=== PATIENT | female | born 1965 | race Caucasian/White ===

== ENCOUNTER 2017-12-19 13:43 | Outpatient (CLI) | payer MEDICARE, MEDICAID ==
--- NOTE | 2017-12-19 15:46 | RAD ---
RIGHT ANKLE 3 VIWES: HISTORY: Ankle pain. FINDINGS: Mild soft tissue swelling. Mild degenerative change is present with spurring from the medial malleol us. No fracture. Small enthesophytes from the posterior calcaneus. IMPRESSION: There are degenerative changes as described. No fracture or acute abnormality. POS: [facility]
== END 2017-12-19 13:44 | disposition home or self-care (01) ==
LOC: BICRAD 13:43
PROVIDERS: ATTEND Family Medicine
DX: M25.571 Pain in right ankle and joints of right foot (principal); M19.071 Primary osteoarthritis, right ankle and foot
CPT/HCPCS: 36415; 83036; 84550; 85025; 86140

== ENCOUNTER 2018-04-11 08:33 | Outpatient (CLI) | payer MEDICARE, MEDICAID ==
--- NOTE | 2018-04-11 09:27 | RAD ---
LEFT SHOULDER THREE VIEWS: History: Left shoulder pain. Injury to left shoulder. FINDINGS: No evidence of fracture or dislocation. AC joint is normally aligned. No significant degenerative tommie nge. IMPRESSION: Unremarkable left shoulder. POS: [facility]
== END 2018-04-11 08:34 | disposition home or self-care (01) ==
LOC: BICRAD 08:33
PROVIDERS: ATTEND Family Medicine
DX: M25.512 Pain in left shoulder (principal)
CPT/HCPCS: 36415; 80053; 82043; 83036

== ENCOUNTER 2018-06-23 11:20 | Outpatient (CLI) | payer MEDICARE, OTHER ==
--- NOTE | 2018-06-23 12:05 | RAD ---
2 views of the chest: 06/23/2018 COMPARISON: None HISTORY: Back pain, dyspnea, evaluate for pneumonia FINDINGS: Mild increased linear interstitial density noted bilaterally with no pneumothorax, pleural fluid, focal consolidation, or alveolar edema. Osseous structures demonstrate no acute findings. IMPRESSION: No focal consolidation or alveolar edema.
== END 2018-06-23 11:21 | disposition home or self-care (01) ==
LOC: BICRAD 11:20
PROVIDERS: ATTEND Family Medicine
DX: M54.9 Dorsalgia, unspecified (principal)
CPT/HCPCS: 71046

== ENCOUNTER 2018-10-02 10:47 | Outpatient (CLI) | payer MEDICARE, OTHER ==
--- NOTE | 2018-10-02 11:56 | RAD ---
Left toes 3 views HISTORY: Left toe injury. FINDINGS: The lateral view best demonstrates a nondisplaced oblique fracture through the base of the proximal phalanx little toe. No evidence of intra-articular extension. IMPRESSION: Left Little toe fracture.
== END 2018-10-02 10:48 | disposition home or self-care (01) ==
LOC: BICRAD 10:47
PROVIDERS: ATTEND Family Medicine
DX: M79.675 Pain in left toe(s) (principal); S92.515A Nondisplaced fracture of proximal phalanx of left lesser toe(s), initial encounter for closed fracture
CPT/HCPCS: 36415; 80061; 83036

== ENCOUNTER 2018-12-22 08:58 | Outpatient (CLI) | payer MEDICARE, MEDICAID ==
[2018-12-22 10:15] LABS: #Basophils 0.2 thou/uL (0.0-0.2); #Eosinphils 0.4 thou/uL (0.0-0.7); #Lymphocytes 2.8 thou/uL (1.20-3.40); #Monocytes 0.7 thou/uL (0.11-0.59); #Neutrophils 7.8 thou/uL (1.40-6.50); %Basophils 1.3 % (0.0-1.0); %Eosinophils 3.7 % (0.0-10.0); %Lymphocytes 23.6 % (21.0-51.0); %Monocytes 5.9 % (0.0-10.0); %Neutrophils 65.6 % (42.0-75.0); Hemoglobin 15.2 g/dL (12.0-16.0); Mean Corpuscular HGB CONC 33.5 g/dL (32.0-36.0); Mean Corpuscular Volume 95.5 fL (78.0-98.0); Mean Platelet Volume 8.7 fL (7.4-10.4); Platelet Count 300 thou/uL (130-400); RBC Distribution Width 12.2 % (11.5-14.5); Red Blood Cell (RBC) Count 4.75 mill/uL (4.20-5.40); White Blood Cell (WBC) Count 11.9 thou/uL (4.8-10.8)
[2018-12-22 10:32] LABS: Anion Gap 13 mmol/L (10-20); BUN (Urea Nitrogen) 15 mg/dL (9.8-20.1); Calc. Creatinine Clearance 0 mL/min (70-130); Calcium 9.2 mg/dL (7.8-10.44); Carbon Dioxide 28 mmol/L (22-29); Chloride 101 mmol/L (98-107); Estimated GFR-MDRD 80; Glucose 185 mg/dL (70-105); Potassium 4.7 mmol/L (3.5-5.1); Sodium 137 mmol/L (136-145)
--- NOTE | 2018-12-26 10:29 | EKG ---
Test Reason : Blood Pressure : / mmHG Vent. Rate : 092 BPM Atrial Rate : 092 BPM P-R Int : 120 ms QRS Dur : 086 ms QT Int : 374 ms P-R-T Axes : 071 069 060 degrees QTc Int : 462 ms Normal sinus rhythm Normal ECG No previous ECGs available Confirmed by FINN CRUZ, LILLIAN ([id number]) on 12/26/2018 10:28:58 AM Referred By: TALAT Confirmed By:LILLIAN BRISENO MD
== END 2018-12-22 08:59 | disposition home or self-care (01) ==
LOC: LABBT 08:58
PROVIDERS: ATTEND Specialist
DX: Z01.818 Encounter for other preprocedural examination (principal); L73.2 Hidradenitis suppurativa; Z72.0 Tobacco use; E11.69 Type 2 diabetes mellitus with other specified complication; Z79.4 Long term (current) use of insulin
CPT/HCPCS: 80048; 85025; 93005; 93010

== ENCOUNTER 2018-12-25 07:15 | Day surgery (SDC) | payer MEDICARE, MEDICAID ==
[2018-12-22 09:20] VITALS: BMI 37.6
--- NOTE | 2018-12-25 07:14 | HP ---
HISTORY OF PRESENT ILLNESS: Latonia Pinon is a 53-year-old female, 5 feet 3 inches, 206 pounds, has dealt with hidradenitis suppurativa most of her life. She has had drainage and excision of lesions in both axilla [place] the [place] She had excision of her right axilla lesions and prior to that more than 10-15 years ago, left axilla. She deals chronically with problems with her left axilla worse than the right. She has had previous disease below her breast and to a lesser degree in her groin creases, although these are not currently problems. She desires excision of her left axillary hidradenitis that she has recurrent problems. Plan is to do that under general anesthesia as an outpatient. ALLERGIES: LEVAQUIN CAUSES SOME RESPIRATORY DIFFICULTY. SOCIAL HISTORY: Tobacco 1 pack per day. ALCOHOL: Socially rarely. MEDICATIONS: Metformin 500 mg 2 tabs twice a day, insulin at bedtime, atorvastatin daily, Prozac daily, albuterol as needed only p.r.n., gabapentin 100 mg 3 times a day, naproxen 500 mg q.12 hours, lisinopril daily, Tylenol No. 3 q.6 hours as needed, cyclobenzaprine as needed 3 times a day 5 mg, aspirin 81 mg a day, Tresiba insulin pen subcutaneous tissue at bedtime 62 units, Invokana 300 mg once a day, . PAST SURGICAL HISTORY: Excision of bilateral axilla hidradenitis disease, only dealing with active disease, not an extensive resection in the past. SOCIAL HISTORY: The patient is disabled. She is . She has 3 children. PAST MEDICAL HISTORY: Type 2 diabetes mellitus insulin dependent, metabolic syndrome, morbid obesity, COPD, hyperlipidemia, hypertension, tobacco abuse, chronic bronchitis, and depression. REVIEW OF SYSTEMS: Noncontributory from a cardiac standpoint. She had a cardiac stress test 7 years ago that was normal performed out of state. No cardiac symptoms at all. Never has had a colonoscopy. PHYSICAL EXAMINATION: VITAL SIGNS: Weight 206 pounds, height 5 feet 3 inches, blood pressure 121/66, pulse 103, 97.3 degrees. HEAD, EARS, EYES, NOSE AND THROAT: Unremarkable. LUNGS: Clear to auscultation. No wheezing. No prolonged expiration. ABDOMEN: Soft, obese, nontender. EXTREMITIES: No ankle edema. She has inframammary mild hidradenitis disease, but no redness, no drainage, has some small scant pits. Both axilla reveals scarring in the apex without evidence of extensive resection. She has hair in both axilla extending inferiorly over the chest wall. She has pits and sinuses in the left axilla, worse in the right. ASSESSMENT/PLAN: 1. Hidradenitis suppurativa, worse in her left axilla, where she desires excision. Risks of infection, bleeding, reoperation, wound problems, etcetera were explained. She consents. 2. Chronic obstructive pulmonary disease. 3. Diabetes mellitus. 4. Metabolic syndrome. 5. Tobacco abuse. 6. Insulin-dependent diabetes mellitus. 7. Depression. Job ID: [id number]
[2018-12-25] MEDS ORDERED: Meropenem 2 GM in Sodium Chloride 0.9% 100 ML IVPB SCH (08:00)
[2018-12-25] MEDS ORDERED: Midazolam HCl 2 mg/2 ml Vial ONE (08:21)
[2018-12-25] MEDS ORDERED: Bacitracin Zinc Ointment 30 gm TUBE ONE (08:43)
[2018-12-25] MEDS ORDERED: Lidocaine 2% PF 5 ML VIAL ONE (08:43)
[2018-12-25] MEDS ORDERED: Bupivacaine HCl 0.5%/Epinephrine 1:200,000/PF 30 ml Vial ONE (08:43)
[2018-12-25] MEDS ORDERED: Fentanyl 100 MCG/2 ML VIAL ONE (08:47)
[2018-12-25] MEDS ORDERED: Famotidine/PF 20 mg/2ml Vial ONE (08:47)
[2018-12-25] MEDS ORDERED: HYDROcodone/Acetaminophen 5/325 mg Tablet ONE (12:04)
--- NOTE | 2018-12-25 14:26 | OP ---
DATE OF PROCEDURE: 12/25/2018 PREOPERATIVE DIAGNOSES: Hidradenitis suppurativa, tobacco abuse, diabetes, and morbid obesity. POSTOPERATIVE DIAGNOSES: Hidradenitis suppurativa, tobacco abuse, diabetes, and morbid obesity. PROCEDURE PERFORMED: Excision of left axillary hidradenitis suppurativa. ANESTHESIA: General, local 0.5% Marcaine with epinephrine 30 mL mixed with 2% Xylocaine 10 mL, total volume mixture used. #19 gold VANESSA drain left. DESCRIPTION OF PROCEDURE: The patient was taken to the operating room, where under general anesthesia in supine position, left axilla and chest wall were prepared with ChloraPrep and draped in routine fashion. Local anesthetic was infiltrated in the skin and subcutaneous tissue about the operative site, total volume mixture used. An elliptical incision was made for excision of the hair-bearing area and carried the incision down circumferentially for elliptical incision excising the left axillary skin hair-bearing area and subcutaneous tissue. Hemostasis was gained with the cautery. Flaps were created medially and laterally. Good hemostasis was achieved with a cautery. #19 gold VANESSA drain was placed through a separate inferior stab incision, secured with 3-0 nylon suture. OpSite and Mastisol were applied. . Subcutaneous tissue was approximated with 3-0 Monocryl and 2-0 Monocryl suture. Skin was approximated with continuous suture of 4-0 Monocryl and [place] glue applied. Sterile dressing applied. Job ID: [id number]
== END 2018-12-25 13:15 | disposition home or self-care (01) ==
LOC: SDC 07:15
PROVIDERS: ATTEND Specialist
PROC: 0JBF0ZZ Excision of Left Upper Arm Subcutaneous Tissue and Fascia, Open Approach (ICD-10-PCS; principal; 2018-12-25)
DX: L73.2 Hidradenitis suppurativa (principal); E11.9 Type 2 diabetes mellitus without complications; I10 Essential (primary) hypertension; E88.81 Metabolic syndrome and other insulin resistance; E66.01 Morbid (severe) obesity due to excess calories; J44.9 Chronic obstructive pulmonary disease, unspecified; E78.5 Hyperlipidemia, unspecified; F32.9 Major depressive disorder, single episode, unspecified; F17.210 Nicotine dependence, cigarettes, uncomplicated; Z68.37 Body mass index [BMI] 37.0-37.9, adult; Z79.1 Long term (current) use of non-steroidal anti-inflammatories (NSAID); Z79.4 Long term (current) use of insulin; Z79.82 Long term (current) use of aspirin; Z79.899 Other long term (current) drug therapy; Z88.1 Allergy status to other antibiotic agents
CPT/HCPCS: 80048; 85025; 88305; 93005; J0131; J0670; J2001; J2185; J2250; J3010; J3490; S0028

== ENCOUNTER 2020-12-19 15:14 | Outpatient (CLI) | payer MEDICARE, MEDICAID | END 2020-12-19 15:15 | disposition home or self-care (01) | LOC: BICRAD 15:14 | PROVIDERS: ATTEND Family Medicine | DX: M79.645 Pain in left finger(s) (principal) ==